=== PATIENT | female | born 1970 | race Two or more races ===

== ENCOUNTER 2017-01-13 22:03 | Emergency (ER) | payer OTHER ==
[2017-01-13 21:53] LABS: INFLUENZA A NEG (NEG); INFLUENZA B NEG (NEG)
[~2017-01-13 22:03] MED LIST: ADVAIR 2501 DISK W/D; ALBUTEROL17 GM INH; AUGMENTIN PO; BACTRIM DS TABL1 TA1 PO; BENZONATATE PO; DULERA 100 MCG/13 GM; DULERA 200 MCG/13 GM IH; FLONASE16 GM; IBUPROFEN PO; IBUPROFEN800 MG PO; KEFLEX500 MG PO; LEVAQUIN PO; MEDROL PO; MOTRIN600 MG PO; PHENERGAN DM1 ML PO; PREDNISONE PO; PREDNISONE10 MG PO; ROBITUSSIN-DM120 ML PO; SINGULAIR PO; SYMBICORT IH; ZITHROMAX1 G/PKT PO; ZTUSS EXPECTOR480 ML PO; ZYRTEC10 M2 PO
== END 2017-01-13 22:38 | disposition home or self-care (01) ==
LOC: SED 22:03
PROVIDERS: Physician Assistant
DX: J45.21 Mild intermittent asthma with (acute) exacerbation (principal); J06.9 Acute upper respiratory infection, unspecified
CPT/HCPCS: 87651; 87804; 99283

== ENCOUNTER 2017-03-20 13:36 | Emergency (ER) | payer OTHER | END 2017-03-20 14:07 | disposition home or self-care (01) | LOC: CED 13:36 | DX: J45.901 Unspecified asthma with (acute) exacerbation (principal) | CPT/HCPCS: 99282 ==

== ENCOUNTER → 2017-03-28 | Outpatient (CLI) | payer OTHER ==
--- NOTE | ~2017-03-28 | MR17 ---
[facility] A Service of [facility] & [facility] / [facility] RADIOLOGY TEXT RESULTS PATIENT: JANIE ALAN LOCATION: [facility] : 66 UNIT #: [id number] AGE: [address]: Ruiz Sotelo II, MD SEX: F ORDER DR: [id number] [facility] [address] [place], [place] [address] [id number] O MR#: [id number] Acc #: [id number] NAME: JANIE ALAN : 1970 SEX: F STUDY DATE/TIME: 03/28/2017 8:46 UNIT: [facility] ROOM: STUDY DESCRIPTION: MR Brain WWo Contrast Attending Physician: Ruiz Sotelo II., M.D. Referring Physician: Ruiz Sotelo II., M.D. Ordering Physician: Ruiz Sotelo II., M.D. Primary Care Physician: Boubacar Valencia M.D. MRI CENTER REPORT This report is preliminary unless electronic signature is present. EXAM MRI brain with and without HISTORY No trauma. No history of cancer. Memory loss for a year. COMMENT MRI of the brain was performed prior to and following intravenous administration of 15 mL of MultiHance. There is no previous. There is no evidence for a recent ischemic insult on the diffusion series. No Chiari-I malformation. Midline structures are unremarkable. No extraaxial fluid collection. Only mild periventricular white matter signal abnormality within the range of expected for age group. The major intracranial flow voids are maintained. 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 There is paranasal sinus disease with considerable opacification of the left frontal sinus. Partial opacification of the ethmoid air cells. Mild mucosal disease in the maxillary sinuses and sphenoid sinuses but no sinus air-fluid level. The mastoid air cells are clear. There is no MRI evidence for intracranial hemorrhage. Following contrast administration, there is no pathologic intracranial enhancement. There is no intracranial mass lesion or mass effect. IMPRESSION Paranasal sinus disease. Otherwise essentially normal MRI of the brain with and without contrast for age group. Please evaluate further clinically for evidence of sinusitis. There is near-complete opacification of the left frontal sinus. STS. [facility] A Service of [facility] & [facility] / [facility] RADIOLOGY TEXT RESULTS PATIENT: JANIE ALAN LOCATION: [facility] : 66 UNIT #: [id number] AGE: [address]: Ruiz Sotelo II, MD SEX: F ORDER DR: Dictated by... Rosamaria Thompson M.D. THIS IS AN ELECTRONICALLY VERIFIED REPORT Rosamaria Thompson M.D. at 03/28/2017 11:50 AM Jailene TD: 03/28/2017 11:20 JOB #: [id number] MRI CENTER REPORT Page 1 of 1 COPY
== END | disposition home or self-care (01) ==
LOC: CMRI 08:12
DX: R41.3 Other amnesia (principal); J34.9 Unspecified disorder of nose and nasal sinuses
CPT/HCPCS: 70553; A9577

== ENCOUNTER 2017-07-01 06:46 | Emergency (ER) | payer OTHER ==
[~2017-07-01] VITALS: Ht 160 cm; Wt 81.6 kg
--- NOTE | ~2017-07-01 | CR63 ---
[facility] A Service of [facility] RADIOLOGY TEXT RESULTS PATIENT: JANIE ALAN LOCATION: [facility] : 66 UNIT #: [id number] AGE: [address]: Terri Alfonso SEX: F ORDER DR: [id number] [place] [id number] [facility]. [place], [place] [address] [id number] MR#: [id number] Acc #: [id number] NAME: JANIE ALAN : 1970 SEX: F STUDY DATE/TIME: 07/01/2017 8:40 UNIT: [facility] ROOM: STUDY DESCRIPTION: CR Chest 2 View Attending Physician: Terri Alfonso P.A.-C. Ordering Physician: Terri Alfonso P.A.-C. Primary Care Physician: Boubacar Valencia M.D. MEDICAL IMAGING REPORT This report is preliminary unless electronic signature is present EXAM Chest x-ray. HISTORY Cough and headaches for the past 2 days. COMPARISON 10/04/2016. TECHNIQUE 2 views of the chest were obtained. FINDINGS PA and lateral examination of the chest upright shows a good expansion of the parenchyma with a normal distribution of the pulmonary vascularity. There is no indication of congestion, effusion, infiltrate, tumor, or nodular density. The pleural reflections and diaphragmatic contours are normal. The cardiac silhouette and mediastinal anatomy is within normal limits. IMPRESSION Normal chest. Dictated by... Junaid Mcfadden M.D. THIS IS AN ELECTRONICALLY VERIFIED REPORT Junaid Mcfadden M.D. at 07/01/2017 4:54 PM RLF/gz TD: 07/01/2017 10:54 JOB #: [id number] [facility] A Service [facility] RADIOLOGY TEXT RESULTS PATIENT: JANIE ALAN LOCATION: [facility] : 66 UNIT #: [id number] AGE: [address]: Terri Alfonso SEX: F ORDER DR: MEDICAL IMAGING REPORT Page 1 of 1 COPY
== END 2017-07-01 09:34 | disposition home or self-care (01) ==
LOC: CED 06:46 → CFTX 06:46
DX: J02.0 Streptococcal pharyngitis (principal); J98.01 Acute bronchospasm
CPT/HCPCS: 71020; 87880; 96372; 99283; J0561